=== PATIENT | female | born 1940 | race Caucasian/White ===

== ENCOUNTER 2017-09-10 10:43 | Outpatient (CLI) | payer MEDICARE | END 2017-09-10 10:44 | disposition home or self-care (01) | LOC: BICMAMMO 10:43 | PROVIDERS: ATTEND Family Medicine | DX: Z12.31 Encounter for screening mammogram for malignant neoplasm of breast; Z80.3 Family history of malignant neoplasm of breast | CPT/HCPCS: 77063; 77067 ==

== ENCOUNTER 2017-09-17 09:45 | Outpatient (CLI) | payer MEDICARE | END 2017-09-17 09:46 | disposition home or self-care (01) | LOC: BICMAMMO 09:45 | PROVIDERS: ATTEND Family Medicine | DX: R92.2 Inconclusive mammogram (principal); N60.01 Solitary cyst of right breast; Z80.3 Family history of malignant neoplasm of breast | CPT/HCPCS: 76642; 77065; G0279 ==

== ENCOUNTER 2017-11-23 14:00 | Outpatient (CLI) | payer MEDICARE ==
[~2017-11-23 14:00] MED LIST: Gadobenate Dimeglumine 529 MG/1 ML (20ML VIAL) ONE
== END 2017-11-23 14:01 | disposition home or self-care (01) ==
LOC: BICMRI 14:00
PROVIDERS: ATTEND Neurological Surgery
DX: M47.26 Other spondylosis with radiculopathy, lumbar region (principal); M99.83 Other biomechanical lesions of lumbar region; Z98.890 Other specified postprocedural states
CPT/HCPCS: 72158; 82565; A9579

== ENCOUNTER 2017-12-10 11:23 | Outpatient (CLI) | payer MEDICARE | END 2017-12-10 11:24 | disposition home or self-care (01) | LOC: LABBT 11:23 | PROVIDERS: ATTEND Neurological Surgery | DX: Z01.810 Encounter for preprocedural cardiovascular examination (principal); M54.16 Radiculopathy, lumbar region | CPT/HCPCS: 93005; 93010 ==

== ENCOUNTER 2017-12-14 06:15 | Day surgery (SDC) | payer MEDICARE ==
[2017-12-10 11:21] VITALS: BMI 32.2
--- NOTE | 2017-12-13 22:49 | HP ---
HISTORY OF PRESENT ILLNESS: Ms. Parry presents today for chronic intension with the right lower ext remity L4 pain with tingling as well as diffuse backache. She has actually had a previous surgery wi th Dr. Crowley in 2010 for a similar problem though did not have much improvement that she can recall. She has had epidural steroid injections continued since that time and notes that they do help aroun d 2-3 weeks, but the discomforts return. 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 She does have scattered degenera tive disk disease throughout the MRI which could also contribute to her back pains. PAST MEDICAL HISTORY: Significant for hypercholesterolemia, osteoarthritis, and hypertension. CURRENT MEDICATIONS: Lovastatin, lisinopril, chlorthalidone. ALLERGIES: No known drug allergies. PHYSICAL EXAMINATION: The patient is alert and oriented x3. Gait is antalgic. Lower extremity gopi r exam is normal. ASSESSMENT: No radiculopathy. PLAN: Dr. Gutiérrez met with the patient, reviewed imaging and advocated for a right L3-L4 decompression . He explained to the patient the risks, benefits, alternatives of the procedure. The patient expre ssed understanding and would like to move forward with surgery as discussed. I do believe the patien t is mentally competent and capable of making medical decisions for herself and we will move forward with surgery as planned. Flaco Barber PA-C, dictating under Jung Gutiérrez M.D.
[2017-12-14] MEDS ORDERED: Thrombin 5000 UNITS/5 ML VIAL ONE (06:46)
[2017-12-14] MEDS ORDERED: Bupivacaine HCl 0.5%/Epinephrine 1:200,000/PF 30 ml Vial ONE (06:46)
[2017-12-14] MEDS ORDERED: Famotidine/PF 20 mg/2ml Vial ONE (07:15)
[2017-12-14] MEDS ORDERED: Fentanyl 100 MCG/2 ML VIAL ONE (07:15)
[2017-12-14] MEDS ORDERED: CEFAZOLIN/Water 2 GM/20 ML SYRINGE ONE ×2 (07:27→11:36)
[2017-12-14] MEDS ORDERED: Midazolam HCl 2 mg/2 ml Vial ONE (07:28)
--- NOTE | 2017-12-14 08:47 | OP ---
DATE OF PROCEDURE: 12/14/2017 SURGEON: Jung Gutiérrez M.D. BUTTON BUTTONHOLE MARKER: None. INDICATION: Pain. DIAGNOSIS: Lumbar radiculopathy. PROCEDURE: Reoperation right L3-4 hemilaminectomy, medial facetectomy, decompression. ANESTHESIA: General. TECHNIQUE: The patient was brought into the operating room and placed under general anesthesia. She was flipped from a supine or prone position on the operating room table. A linear incision was plan manuelito over the L3-L4 segment on the right. This was near a previous incision on the same side, also, o n the right. After prepping and draping and after an appropriate operative pause, the incision was c reated. Soft tissues swept away from midline. Self-retaining retractor was placed in the wound for optimal exposure. After confirming the appropriate level with C-arm fluoroscopy, a high-speed cuttin g drill bit as well as 2, 3 and 4 mm Kerrisons were used to extend the previous laminectomy site more cephalad as well as laterally until the lateral recesses were decompressed at the L3-4 site which is the location of the patient's prior surgical site. After decompressing this area, the wound was irr igated. Hemostasis was maintained throughout. The wound was then closed in anatomic layers and a pr essure dressing was applied. There were no known procedural complications.
[2017-12-14] MEDS ORDERED: Promethazine HCl 25 MG/ML VIAL ONE (10:42)
[2017-12-14] MEDS ORDERED: Ondansetron HCl/PF 4 MG/2 ML Vial ONE (14:45)
[2017-12-14] MEDS ORDERED: Dexamethasone 20 MG/5 ML VIAL ONE (14:45)
[2017-12-14] MEDS ORDERED: ePHEDrine/0.9% NaCl/PF SYRINGE 50 mg/10 ml ONE (14:45)
[2017-12-14] MEDS ORDERED: PROPOFOL 200 MG/20 ML VIAL ONE (14:45)
[2017-12-14] MEDS ORDERED: Lidocaine 1% PF 5 ML VIAL ONE (14:45)
[2017-12-14] MEDS ORDERED: Glycopyrrolate 0.2 MG/ML 5 ML SYRINGE ONE (14:45)
[2017-12-14] MEDS ORDERED: Ketorolac Tromethamine 30 MG/ML VIAL ONE (14:45)
== END 2017-12-14 12:08 | disposition home or self-care (01) ==
LOC: SDC 06:15
PROVIDERS: ATTEND Neurological Surgery
PROC: 01NB0ZZ Release Lumbar Nerve, Open Approach (ICD-10-PCS; principal; 2017-12-14)
DX: M54.16 Radiculopathy, lumbar region (principal); E78.00 Pure hypercholesterolemia, unspecified; M19.90 Unspecified osteoarthritis, unspecified site; I10 Essential (primary) hypertension; Z88.5 Allergy status to narcotic agent; Z88.2 Allergy status to sulfonamides; Z79.82 Long term (current) use of aspirin; Z79.899 Other long term (current) drug therapy
CPT/HCPCS: 76001; 96374; J0131; J0670; J1100; J1885; J2001; J2250; J2405; J2550; J2704; J3010; S0028

== ENCOUNTER 2018-09-05 09:50 | Emergency (ER) | payer MEDICARE ==
--- NOTE | 2018-09-05 10:53 | CT ---
FCT lumbar spine without IV contrast INDICATION: 77-year-old female with left-sided back pain Comparison: MR lumbar spine dated November 23, 2017. FINDINGS: Bones: No acute fracture evident. Spinal alignment within normal limits. Disc spaces: There is multilevel disc degenerative disease most pronounced at T12-L1 where there is a dvanced Modic endplate degenerative change. Osseous central canal and neural foramina: No appreciable osseous central canal or neural foraminal n arrowing is demonstrated. Retroperitoneum and paravertebral soft tissues: No acute abnormality. IMPRESSION: No acute fracture or subluxation demonstrated. Moderate multilevel spondylosis of the lum bar spine.
[2018-09-05] MEDS ORDERED: Ketorolac Tromethamine 30 MG/ML VIAL ONE (11:02)
[2018-09-05] MEDS ORDERED: Lorazepam 2 MG/ML VIAL ONE (11:05)
== END 2018-09-05 11:55 | disposition home or self-care (01) ==
LOC: ERS 09:50
DX: G89.29 Other chronic pain (principal); M54.5 Low back pain; E78.5 Hyperlipidemia, unspecified; I10 Essential (primary) hypertension; Z79.899 Other long term (current) drug therapy; Z79.82 Long term (current) use of aspirin
CPT/HCPCS: 72131; 96374; 96375; J1885; J2060

== ENCOUNTER 2018-09-20 09:29 | Outpatient (CLI) | payer MEDICARE ==
--- NOTE | 2018-09-20 10:54 | MMO ---
Bilateral MAMMO Bilat Screen [facility]. CLINICAL HISTORY: Patient is 77 years old and is seen for screening. The patient has the following family history of breast cancer: maternal aunt. The patient has no personal history of cancer. The patient has a history of right needle biopsy in - benign. VIEWS: The views performed were: bilateral craniocaudal with tomosynthesis and bilateral mediolateral oblique with tomosynthesis. FILMS COMPARED: The present examination has been compared to prior imaging studies performed at [facility] on 08/31/2014, 09/03/2015, 09/05/2016, 09/10/2017 and 09/17/2017. MAMMOGRAM FINDINGS: There are scattered fibroglandular densities. There are stable masses and benign appearing calcifications seen in both breasts. There are no suspicious masses, suspicious calcifications, or new areas of architectural distortion. IMPRESSION: THERE IS NO MAMMOGRAPHIC EVIDENCE OF MALIGNANCY. A ROUTINE FOLLOW-UP MAMMOGRAM IN 1 YEAR IS RECOMMENDED. 3BTHE RESULTS OF THIS EXAM WERE SENT TO THE PATIENT.0B ACR BI-RADS Category 2 - Benign finding MAMMOGRAPHY NOTE: 1. A negative mammogram report should not delay a biopsy if a dominant of clinically suspicious mass is present. 2. Approximately 10% to 15% of breast cancers are not detected by mammography. 3. Adenosis and dense breasts may obscure an underlying neoplasm.
== END 2018-09-20 09:30 | disposition home or self-care (01) ==
LOC: BICMAMMO 09:29
PROVIDERS: ATTEND Orthopaedic Surgery Foot and Ankle Surgery
DX: Z12.31 Encounter for screening mammogram for malignant neoplasm of breast (principal); Z80.3 Family history of malignant neoplasm of breast
CPT/HCPCS: 77063; 77067

== ENCOUNTER 2019-04-21 16:19 | Emergency (ER) | payer MEDICARE ==
[~2019-04-21 16:19] MED LIST changes: -Gadobenate Dimeglumine 529 MG/1 ML (20ML VIAL) ONE; +Iopamidol-370 76% 500 ML 1 ML ONE
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
[2019-04-21 17:13] LABS: #Basophils 0.1 thou/uL (0.0-0.2); #Eosinphils 0.4 thou/uL (0.0-0.7); #Lymphocytes 2.1 thou/uL (1.20-3.40); #Monocytes 0.9 thou/uL (0.11-0.59); #Neutrophils 6.4 thou/uL (1.40-6.50); %Basophils 0.7 % (0.0-1.0); %Eosinophils 4.3 % (0.0-10.0); %Lymphocytes 21.4 % (21.0-51.0); %Monocytes 8.8 % (0.0-10.0); %Neutrophils 64.8 % (42.0-75.0); Hemoglobin 14.4 g/dL (12.0-16.0); Mean Corpuscular HGB CONC 33.5 g/dL (32.0-36.0); Mean Corpuscular Hemoglobin 30.4 pg (27.0-31.0); Mean Corpuscular Volume 90.7 fL (78.0-98.0); Mean Platelet Volume 8.3 fL (7.4-10.4); Platelet Count 232 thou/uL (130-400); Red Blood Cell (RBC) Count 4.74 mill/uL (4.20-5.40); White Blood Cell (WBC) Count 9.8 thou/uL (4.8-10.8)
[2019-04-21] MEDS ORDERED: Ondansetron PF 4 MG/2 ML Vial ONE (17:23)
[2019-04-21 17:34] LABS: ALT (SGPT) 21 U/L (8-55); AST (SGOT) 21 U/L (5-34); Albumin 4.5 g/dL (3.4-4.8); Alkaline Phosphatase 101 U/L (40-110); Anion Gap 13 mmol/L (10-20); BUN (Urea Nitrogen) 20 mg/dL (9.8-20.1); Bilirubin, Total 0.3 mg/dL (0.2-1.2); Calc. Creatinine Clearance 0 mL/min (70-130); Calcium 10.2 mg/dL (7.8-10.44); Carbon Dioxide 30 mmol/L (23-31); Chloride 101 mmol/L (98-107); Estimated GFR-MDRD 72; Globulin 3.1 g/dL (2.4-3.5); Glucose 102 mg/dL (83-110); Potassium 3.9 mmol/L (3.5-5.1); Protein, Total 7.6 g/dL (6.0-8.3); Sodium 140 mmol/L (136-145)
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
[2019-04-21] MEDS ORDERED: Ketorolac Tromethamine 30 MG/ML VIAL ONE (17:49)
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
== END 2019-04-21 18:53 | disposition home or self-care (01) ==
LOC: ERS 16:19
DX: S40.012A Contusion of left shoulder, initial encounter (principal); I10 Essential (primary) hypertension; V89.2XXA Person injured in unspecified motor-vehicle accident, traffic, initial encounter
CPT/HCPCS: 71045; 71260; 74177; 80053; 85025; 93005; 96361; 96374; 96375; J1885; J2405; Q9967

== ENCOUNTER 2020-02-28 14:11 | Outpatient (CLI) | payer MEDICARE ==
--- NOTE | 2020-02-28 15:11 | RAD ---
Exam: Lumbar spine 4 views HISTORY: Lumbar radiculopathy. FINDINGS: AP, lateral neutral weightbearing, lateral flexion weightbearing lateral extension weightbe aring views of the lumbar spine are submitted for dictation 5 lumbar type vertebra. Mild rightward curvature the upper lumbar spine. Visualized sacrum and bony p jack are intact In the lateral neutral projection, there is prominent anterior osteophyte formation at T12-L1. At L1- L2, no significant spondylolisthesis in the neutral position. Upon flexion, there is 1.4 mm of retrolisthesis of L1 upon L2. Upon extension, there is 1.8 mm of retrolisthesis of L1 upon L2. At L5-S1, there is 3.3 mm of anterolisthesis in the neutral position, 3.2 mm of anterolisthesis upon flexion and resolution of anterolisthesis upon extension. No definite associated spondylolysis. IMPRESSION: Degenerative changes and spondylolisthesis/spondylolisthesis changes as above.
--- NOTE | 2020-02-28 15:53 | MRI ---
MRI lumbar spine noncontrast HISTORY: Low back pain. Bilateral radiculopathy. Prior surgery. FINDINGS: The conus medullaris has normal appearance. Vertebral body heights are maintained. Prominen t S-shaped rotatory scoliotic curvature. Scattered hyperintense hemangiomas throughout the vertebral body bone marrow. Discogenic endplate feliciano nges of the bone marrow most pronounced at the T12-L1 level. Desiccation of all of the intervertebral discs. T12-L1: Mild disc bulge. Osteophytosis of the facets. Central canal and right neural foramen are townsend nt. Moderate stenosis left neural foramen. L1-2: Disc space narrowing. Minimal degenerative retrolisthesis. Posterior disc bulge and circumferen tial degenerative changes. Mild stenosis of the central canal. Mild right and moderate left foraminal stenoses. L2-3: Disc space narrowing. Circumferential degenerative changes. Mild stenosis of the central canal. Mild right and moderate left foraminal stenoses. L3-4: Disc space narrowing. Mild posterior disc bulge. Posterior degenerative changes. Central canal is patent. Severe right and moderate left foraminal stenosis. L4-5: Disc space narrowing. Diffuse posterior disc bulge and circumferential degenerative changes. Mo derate stenosis of the central canal. Mild stenosis of each neural foramen. L5-S1: Minimal disc bulge. Osteophytosis of the facets. Thecal sac and neural foramina are patent. IMPRESSION : Multilevel degenerative changes throughout the lumbar spine as detailed above. Stenosis greatest at t he right L3-4 neural foramen. Clinical correlation regarding the right L3 dermatome is required.
== END 2020-02-28 14:12 | disposition home or self-care (01) ==
LOC: BICMRI 14:11
PROVIDERS: ATTEND Nurse Practitioner Family
DX: M47.26 Other spondylosis with radiculopathy, lumbar region (principal); M43.16 Spondylolisthesis, lumbar region; M43.17 Spondylolisthesis, lumbosacral region; M48.061 Spinal stenosis, lumbar region without neurogenic claudication
CPT/HCPCS: 72110; 72148

== ENCOUNTER 2020-08-10 08:47 | Observation (INO) | payer MEDICARE ==
[2020-08-10] MEDS ORDERED: Nitroglycerin 0.4 MG TAB 1 EACH ONE (09:22)
[2020-08-10] MEDS ORDERED: Aspirin Chewable 81 MG TAB ONE (09:22)
[2020-08-10 09:44] LABS: #Eosinphils 0.5 thou/uL (0.0-0.7); #Lymphocytes 2.2 thou/uL (1.20-3.40); #Monocytes 0.5 thou/uL (0.11-0.59); %Basophils 0.7 % (0.0-1.0); %Eosinophils 8.4 % (0.0-10.0); %Lymphocytes 35.6 % (21.0-51.0); %Monocytes 7.3 % (0.0-10.0); %Neutrophils 47.9 % (42.0-75.0); Hemoglobin 13.9 g/dL (12.0-16.0); Mean Corpuscular HGB CONC 33.7 g/dL (32.0-36.0); Mean Corpuscular Hemoglobin 30.7 pg (27.0-31.0); Mean Corpuscular Volume 90.9 fL (78.0-98.0); Mean Platelet Volume 8.6 fL (7.4-10.4); Platelet Count 250 thou/uL (130-400); RBC Distribution Width 11.7 % (11.5-14.5); Red Blood Cell (RBC) Count 4.53 mill/uL (4.20-5.40); White Blood Cell (WBC) Count 6.3 thou/uL (4.8-10.8)
[2020-08-10] MEDS ORDERED: Fentanyl 100 MCG/2 ML VIAL ONE (10:01)
[2020-08-10 10:04] LABS: ALT (SGPT) 19 U/L (8-55); AST (SGOT) 26 U/L (5-34); Albumin 4.1 g/dL (3.4-4.8); Alkaline Phosphatase 94 U/L (40-110); Anion Gap 16 mmol/L (10-20); BUN (Urea Nitrogen) 22 mg/dL (9.8-20.1); Bilirubin, Total 0.5 mg/dL (0.2-1.2); Calc. Creatinine Clearance 0 mL/min (70-130); Calcium 9.2 mg/dL (7.8-10.44); Carbon Dioxide 27 mmol/L (23-31); Chloride 103 mmol/L (98-107); Globulin 2.9 g/dL (2.4-3.5); Glucose 101 mg/dL (83-110); Potassium 3.8 mmol/L (3.5-5.1); Sodium 142 mmol/L (136-145)
[2020-08-10] MEDS ORDERED: Acetaminophen 500 MG TAB ONE (11:52)
[2020-08-10] MEDS ORDERED: Nitroglycerin 0.4 MG TAB (25 Tab Bottle) SL PRN (13:50)
[2020-08-10 14:19] VITALS: BMI 30.3
[2020-08-10 17:46] LABS: Troponin I 0.019 ng/mL (< 0.028)
[2020-08-10] MEDS: Acetaminophen 325 MG TAB PO PRN (19:26)
[2020-08-10] MEDS: valACYclovir 500 MG TAB PO SCH (20:18)
[2020-08-10] MEDS: Ketorolac Tromethamine 10 MG TAB PO PRN (20:19)
[2020-08-11 05:32] LABS: Cardiac Risk 3.1 (Less than 4.5)
[2020-08-11] MEDS: Ketorolac Tromethamine 10 MG TAB PO PRN (05:35)
[2020-08-11 08:30] VITALS: BP 169/60; TEMP 97.9
[2020-08-11] MEDS: valACYclovir 500 MG TAB PO SCH (08:49)
[2020-08-11] MEDS: Acetaminophen 325 MG TAB PO PRN (08:56)
[2020-08-11] MEDS ORDERED: Aspirin Chewable 81 MG TAB PO SCH (09:00)
[2020-08-11] MEDS ORDERED: Cyanocobalamin (Vitamin B-12) 1,000 MCG TAB PO SCH (09:00)
[2020-08-11] MEDS ORDERED: Cholecalciferol 1,000 UNITS (25 MCG) TAB PO SCH (09:00)
[2020-08-11] MEDS ORDERED: Atorvastatin Calcium 10 MG TAB PO SCH (09:00)
[2020-08-11] MEDS ORDERED: Lisinopril 20 MG TAB PO SCH (09:00)
[2020-08-11] MEDS ORDERED: Chlorthalidone 25 MG TAB PO SCH (09:00)
== END 2020-08-11 11:53 | disposition home or self-care (01) ==
LOC: ERS 08:47 → 2SW 12:48
PROVIDERS: ADMIT Internal Medicine; ATTEND Internal Medicine
DX: R07.9 Chest pain, unspecified (principal); R21 Rash and other nonspecific skin eruption; I10 Essential (primary) hypertension; E78.5 Hyperlipidemia, unspecified; M19.90 Unspecified osteoarthritis, unspecified site; Z79.82 Long term (current) use of aspirin; Z79.899 Other long term (current) drug therapy; Z88.2 Allergy status to sulfonamides; Z88.5 Allergy status to narcotic agent
CPT/HCPCS: 36415; 71045; 80053; 80061; 83735; 83880; 84443; 84484; 85025; 85379; 93005; 94760; 96374; G0378; J3010

== ENCOUNTER 2020-09-27 09:34 | Outpatient (CLI) | payer MEDICARE | END 2020-09-27 09:35 | disposition home or self-care (01) | LOC: BICMAMMO 09:34 | PROVIDERS: ATTEND Family Medicine | DX: Z12.31 Encounter for screening mammogram for malignant neoplasm of breast (principal); Z13.820 Encounter for screening for osteoporosis; E28.39 Other primary ovarian failure; M51.36 Other intervertebral disc degeneration, lumbar region; M85.851 Other specified disorders of bone density and structure, right thigh; M85.852 Other specified disorders of bone density and structure, left thigh; Z78.0 Asymptomatic menopausal state; Z80.3 Family history of malignant neoplasm of breast | CPT/HCPCS: 77063; 77067; 77080 ==

== ENCOUNTER 2021-09-30 08:48 | Outpatient (CLI) | payer MEDICARE | END 2021-09-30 08:49 | disposition home or self-care (01) | LOC: BICMAMMO 08:48 | PROVIDERS: ATTEND Family Medicine | DX: Z12.31 Encounter for screening mammogram for malignant neoplasm of breast (principal); Z80.3 Family history of malignant neoplasm of breast; Z91.89 Other specified personal risk factors, not elsewhere classified | CPT/HCPCS: 77063; 77067 ==

== ENCOUNTER 2021-11-02 03:56 | Emergency (ER) | payer MEDICARE ==
[2021-11-02] MEDS ORDERED: Cyclobenzaprine 10 MG TAB ONE (04:32)
== END 2021-11-02 05:34 | disposition home or self-care (01) ==
LOC: ERS 03:56
DX: M54.2 Cervicalgia (principal); R05.9 Cough, unspecified; E78.5 Hyperlipidemia, unspecified; E78.00 Pure hypercholesterolemia, unspecified; I10 Essential (primary) hypertension; Z79.899 Other long term (current) drug therapy; Z79.82 Long term (current) use of aspirin
CPT/HCPCS: 71045; 93005

== ENCOUNTER 2022-06-20 08:39 | Outpatient (CLI) | payer MEDICARE | END 2022-06-20 08:40 | disposition home or self-care (01) | LOC: BICRAD 08:39 | PROVIDERS: ATTEND Family Medicine | DX: M25.552 Pain in left hip (principal); M17.12 Unilateral primary osteoarthritis, left knee ==

== ENCOUNTER 2023-10-29 08:20 | Outpatient (CLI) | payer MEDICARE | END 2023-10-29 08:21 | disposition home or self-care (01) | LOC: BICMAMMO 08:20 | PROVIDERS: ATTEND Family Medicine | DX: Z12.31 Encounter for screening mammogram for malignant neoplasm of breast (principal); Z80.3 Family history of malignant neoplasm of breast; Z91.89 Other specified personal risk factors, not elsewhere classified | CPT/HCPCS: 77063; 77067 ==

== ENCOUNTER 2024-02-25 07:54 | Outpatient (CLI) | payer MEDICARE | END 2024-02-25 07:55 | disposition home or self-care (01) | LOC: BICRAD 07:54 | PROVIDERS: ATTEND Family Medicine | DX: M25.562 Pain in left knee (principal); M17.12 Unilateral primary osteoarthritis, left knee ==

== ENCOUNTER 2024-03-22 14:26 | Outpatient (CLI) | payer MEDICARE | END 2024-03-22 14:27 | disposition home or self-care (01) | LOC: BICMAMMO 14:26 | PROVIDERS: ATTEND Family Medicine | DX: Z78.0 Asymptomatic menopausal state (principal); E28.39 Other primary ovarian failure; M85.89 Other specified disorders of bone density and structure, multiple sites | CPT/HCPCS: 77080 ==